=== PATIENT | male | born 1955 | race Caucasian/White ===

== ENCOUNTER 2020-09-11 10:51 | Emergency (ER) | payer OTHER, SELFPAY ==
[2020-09-11 10:57] VITALS: BP 194/98; PULSE 69; RESP 16; TEMP 36.9; O2SAT 100
--- NOTE | 2020-09-11 11:01 | ED.SKABFB ---
HPI - Skin/Abscess/Foreign Bdy General Chief complaint: Skin/Abscess/Foreign Body Stated complaint: sore spots on head Time Seen by Provider: 09/11/20 11:02 Source: patient and RN notes reviewed History of Present Illness HPI narrative: Patient is a 65-year-old male who presents the urgent care with complaints of painful red scalp. Patient states he noticed it on [place]. States that approximately 3 weeks ago he did hit his head on the garage but does not seem to think the 2 are related. Patient has not had any headaches since the incident. Denies of any fever, chills, nausea, vomiting. Denies any history of eczema or psoriasis. Patient states he does have a history of dry scalp and has always use head and shoulders. Denies of any new soaps or detergents. States that he has been scratching severely on the scalp in taking steaming hot showers. States he has been using ibuprofen for the pain and it does take off the edge. No other acute complaints. No acute distress noted. Patient aware of the plan of care. Some parts of this dictation were generated by voice recognition software and may contain typographical and/or grammatical inaccuracies. Related Data Allergies Allergy/AdvReac Type Severity Reaction Status Date / Time iodine Allergy Unknown Nausea and Verified 09/11/20 10:58 Vomiting Penicillins Allergy Unknown Unknown Verified 09/11/20 10:58 shellfish derived Allergy Unknown Nausea and Verified 09/11/20 10:58 Vomiting Sulfa (Sulfonamide Allergy Unknown Unknown Verified 09/11/20 10:58 Antibiotics) Review of Systems Review of Systems: Narrative: CONSTITUTIONAL: Denies fever, chills, or sweats. EYES: Denies visual changes, redness, or discharge. ENT: Denies rhinorrhea, congestion, sore throat, or otalgia. CARDIOVASCULAR: Denies chest pain, palpitations, or edema. RESPIRATORY: Denies cough or dyspnea. GASTROINTESTINAL: Denies abdominal pain, nausea, vomiting, or diarrhea. GENITOURINARY: Denies dysuria or hematuria. SKIN: Reports of itchy red swollen scalp MUSCULOSKELETAL: Denies back pain, joint pain, or myalgia. NEUROLOGIC: Denies headache, numbness, or weakness. All other systems reviewed are negative, except as documented in HPI. [facility] Family History Family History (Updated 03/29/18 @ 09:39 by DOCTOR UNKNOWN) Mother Cerebrovascular accident Father Malignant neoplasm of prostate Other Family history of allergic disorder Hypertension Social History Social History Smoking status: Never smoker Alcohol intake: current Comments At the time of my signature, I reviewed and agree with the nursing past medical, surgical, social, and family history. There is no relevant family history pertinent to the patient complaint. Exam Narrative: Exam Narrative: GENERAL: This is a well-nourished, well-developed patient, in no apparent distress. HEAD: normocephalic, atraumatic. EYES: PERRL. Sclera clear/white. Vision is grossly intact. EARS: External ears normal NOSE: External nose normal with no obvious nasal discharge, nares without redness, no rhinorrhea. THROAT: Mucous membranes moist NECK: Neck supple, non-tender without lymphadenopathy SKIN: 1.5 cm raised skin lesion to the crown of the head without surrounding erythema or open wound. Erythemic/irritated scalp without any notable open wounds NEURO: awake, alert, and oriented to person, place and time. There were no obvious focal neurologic abnormalities. EXTREMITIES: No clubbing, cyanosis, or edema. Course Vital Signs Vital signs: Vital Signs Temperature 98.5 F 09/11/20 10:57 Pulse Rate 69 09/11/20 10:57 Respiratory Rate 16 09/11/20 10:57 Blood Pressure 194/98 H 09/11/20 10:57 Pulse Oximetry 100 09/11/20 10:57 Temperature 98.5 F 09/11/20 10:57 Pulse Rate 69 09/11/20 10:57 Respiratory Rate 16 09/11/20 10:57 Blood Pressure 194/98 H 09/11/20 10:57 Pulse Oximetry 100 09/11/20 10:57 Reviewed-patient
== END 2020-09-11 11:17 | disposition home or self-care (01) ==
PROVIDERS: Emergency Provider Nurse Practitioner Family
DX: L98.9 Disorder of the skin and subcutaneous tissue, unspecified (principal)
CPT/HCPCS: 99203; G0463